=== PATIENT | male | born 1965 | race Caucasian/White ===

== ENCOUNTER 2017-04-02 18:34 | Inpatient (IN) | payer OTHER ==
[~2017-04-02] VITALS: Ht 180.3 cm; Wt 81.6 kg
--- NOTE | 2017-04-02 18:59 | NUR ---
PT BIBA WITH C/O NON-RADIATING, MIDSTERNAL CHEST PRESSURE X1.5 HOURS. PT REPORTS WALKING BACK FROM [place] TO HIS CELL WHEN HE BEGAN FEELING THE PRESSURE. PT REPORTS GOING TO [facility] WHERE PT WAS FUND TO BE IN SVT. PT REPORTS HX OF SVT, FIRST TIME IN 2014, SECOND DECEMBER 2016. WHEN EMS ARRIVED ON SCENE THEY HAD PT VAGAL TWICE BRINGING HIS HR DOWN FROM 180'S TO 150'S, IN THE PROCESS OF PT MOVING OVER TO THEIR EMS GURNEY PT HR RETURNED TO 80-90'S. UPON ASSESSMENT PT DENIES CP, "JUST LINGERING TIGHTNESS." PT RATES DISCOMFORT 06/27. PT DENIES N/V, DENIES CP/SOB, DENIES [place]. PT CHANGED INTO GOWN, CONNECTED TO CARDIORESP MONITORS, AWAITING EVAL BY PHYSICIAN.
--- NOTE | 2017-04-02 19:22 | NUR ---
REPORT GIVEN TO AND CARE ENDORSED TO JANKI DÍAZ.
[2017-04-02 19:38] LABS: microscopic required? NO
[2017-04-02 19:55] LABS: BASOPHIL % 0.4 % (0-2); PLATELET COUNT 210 x10^3mcL (130-400); RED CELL DISTRIBUTION WIDTH 13.3 % (11.5-14.5)
[2017-04-02 19:59] LABS: CARBON DIOXIDE 30.3 mmol/L (21-32); CHLORIDE SERUM 106 mmol/L (98-107); CREATININE SERUM 1.1 mg/dL (0.7-1.3); GFR1 > 60 mL/min; GLUCOSE SERUM 100 mg/dL (74-106); SODIUM SERUM 143 mmol/L (136-145)
[2017-04-02 20:03] LABS: ALBUMIN 3.6 g/dL (3.4-5.0); ALKALINE PHOSPHATASE 65 U/L (46-116); ALT/SGPT 30 U/L (16-63); AST/SGOT 21 U/L (15-37); CHOLESTEROL 176 mg/dL (<200); CHOLESTEROL/HDL RATIO 3.7; HDL CHOLESTEROL 47 mg/dL (40-60); LIPASE 142 IU/L (73-393); TOTAL PROTEIN, SERUM 7.7 g/dL (6.4-8.2)
[2017-04-02 20:07] LABS: TRIGLYCERIDES 287 mg/dL (<150)
[2017-04-02 20:10] LABS: UA SPECIFIC GRAVITY <=1.005 (1.005-1.035); urine erythrocyte NEGATIVE (NEGATIVE)
[2017-04-02 20:16] LABS: AMPHETAMINE QUAL UR NONE DETECTED (NEG <=1000)
[2017-04-02 20:19] LABS: T3 TOTAL 1.14 ng/mL
--- NOTE | 2017-04-02 20:20 | NUR ---
REPORT WAS GIVEN TO HARRISON. PATIENT TRANSPORTED TO ROOM 225.
[2017-04-02 20:21] LABS: FREE T4 0.97 ng/dL (0.76-1.46); FREE THYROXINE INDEX 3.5 ug/dL (1.4-4.5); T4(THYROXINE) 9.5 ug/dL (4.7-13.3)
--- NOTE | 2017-04-02 20:22 | NUR ---
RECEIVED PT FROM ED [employer]IA [employer], CAME IN DUE TO CHEST PRESSURE. AAOX4. NO SOB NOTED. DENIES CHEST PAIN/PRESSURE, NSR ON THE MONITOR. DENIES ABDOMINAL DISCOMFORT. C/O MILD ANXIETY. IV SITE PATENT AND INTACT. SIDE RAILS UPX2. CALL LIGHT ON REACH. ENDORSED TO PRIMARY NURSE HARRISON FOR CONTINUITY OF CARE.
[2017-04-02 20:35] VITALS: BP 149/90
[2017-04-02 20:41] VITALS: Ht 180.3 cm; Wt 81.6 kg
--- NOTE | 2017-04-03 05:15 | NUR ---
PT ASLEEP BUT EASILY AROUSABLE, SLEPT WELL AFTER MIDNIGHT, SL TO LAC, ON TELE#32 SB/NSR, NO C/O OF ANY PALPITATION OR CHEST DISCOMFORT AFTER ADMITTED TO THE UNIT, GUARDS AT BEDSIDE, NO DISTRESS NOTED, WILL KEEP TO MONITOR.
[2017-04-03 05:45] VITALS: BP 120/81
[2017-04-03 06:30] LABS: BASOPHIL % 0.8 % (0-2); PLATELET COUNT 185 x10^3mcL (130-400); RED CELL DISTRIBUTION WIDTH 12.9 % (11.5-14.5)
[2017-04-03 06:50] LABS: CALCIUM 8.7 mg/dL (8.5-10.1); CARBON DIOXIDE 31.3 mmol/L (21-32); CHLORIDE SERUM 106 mmol/L (98-107); GFR1 > 60 mL/min; GLUCOSE SERUM 93 mg/dL (74-106); POTASSIUM SERUM 4.2 mmol/L (3.5-5.1); SODIUM SERUM 142 mmol/L (136-145)
--- NOTE | 2017-04-03 07:18 | NUR ---
A+OX4, DENIES CHEST PAIN, CHEST PRESSURE, SOB, AND PAIN, TELE 32, PULSES MDAERATE AND EQUAL BO, NO EDEMA PRESENT, SCDS ON, LUNG SOUNDS CLEAR, TOLERATING RA, BOWEL SOUNDS ACTIVE, VOIDING, AMBULATORY, SKIN INTACT, IV IN LAC SALINE LOCKED, SITE WNL.
--- NOTE | 2017-04-03 08:49 | NUR ---
PT RESTING IN BED, NO RESPRIATORY DISTRESS NOTED, DENIES PAIN.
[2017-04-03 09:58] VITALS: BP 128/86
--- NOTE | 2017-04-03 11:14 | NUR ---
PT RESTING IN BED, NO RESPRIATORY DISTRESS NOTED, DENIES PAIN.
--- NOTE | 2017-04-03 13:27 | NUR ---
CALLED TO [facility] AND SPOKE TO GIOVANI MARIN AND MADE HIM AWARE PT IS READY TO D/C BACK TO [facility]. ABBY DÍAZ ASSIGNED TO THIS PT MADE AWARE OF ABOVE.
--- NOTE | 2017-04-03 14:16 | NUR ---
PT GIVEN DISCHARGE INSTRUCTIONS AND VERBALIZED UNDERSTANDING. DISCHARGE PACKET GIVEN TO MOO. IV REMOVED WITH CATHETER INTACT.
[2017-04-03 14:20] VITALS: BP 130/91
--- NOTE | 2017-04-03 15:47 | NUR ---
PT RESTING IN BED, NO RESPIRATORY DISTRESS NOTED, DENIES CHEST PAIN.
--- NOTE | 2017-04-03 16:16 | NUR ---
PT OFF UNIT WITH ALL BELONGINGS ESCORTED BY GUARDS AND REHAB SPEC, TELE REMOVED AND RETURNED TO MT STATION.
== END 2017-04-03 16:26 | disposition other institution (70) | DRG 310 ==
LOC: ED 18:34 → DU 19:19
PROVIDERS: Specialist; ADMIT Internal Medicine
DX: I47.1 Supraventricular tachycardia (principal); G89.29 Other chronic pain; M54.9 Dorsalgia, unspecified; I25.10 Atherosclerotic heart disease of native coronary artery without angina pectoris; H26.9 Unspecified cataract
CPT/HCPCS: 83880; 84439; Q0092